=== PATIENT | female | born 1985 | race Caucasian/White ===

== ENCOUNTER → 2017-10-16 | Outpatient (CLI) | payer OTHER ==
[~2017-10-16] MED LIST: BREAST PUMP MC; ENDOCET 5-3251 EACH PO; IBUPROFEN800 MG PO; Motrin PO; Percocet 5/325,Endoc PO
== END | disposition home or self-care (01) ==
LOC: RAD 15:30
PROC: BU18YZZ Fluoroscopy of Uterus and Fallopian Tubes using Other Contrast (ICD-10-PCS; principal; 2017-10-16)
PROC: 0UJD7ZZ Inspection of Uterus and Cervix, Via Natural or Artificial Opening (ICD-10-PCS; principal; 2017-10-16)
PROC: 0UJ87ZZ Inspection of Fallopian Tube, Via Natural or Artificial Opening (ICD-10-PCS; principal; 2017-10-16)
DX: Z31.41 Encounter for fertility testing (principal)
CPT/HCPCS: 74740